=== PATIENT | male | born 1965 | race Caucasian/White ===

== ENCOUNTER 2018-05-08 23:50 | Emergency (ER) | payer SELFPAY ==
[~2018-05-08] VITALS: Ht 170.2 cm; Wt 6.8 kg
[2018-05-09] MEDS ORDERED: FLUORESCEIN (FLUOR-I-STRIPS) 1 MG STRP OU ONE (01:45)
[2018-05-09] MEDS ORDERED: BSS 15 ML IR ONE (01:45)
[2018-05-09] MEDS ORDERED: TETRACAINE 0.5% OPHTH SOLN 4 ML BTL (SINGLE DOSE ONLY) OU ONE (01:45)
[2018-05-09 04:08] VITALS: BP 177/99
--- NOTE | 2018-05-09 04:08 | ED EENT ---
History of Present Illness General Chief Complaint: Eye Problems Stated Complaint: LEFT EYE Nursing Triage Note: Pt has blood in L eye since 05/04 getting worse each day. Pt reports blurred vision in L eye. pt also reports headache. Source: patient Exam Limitations: no limitations History of Present Illness Date Seen by Provider: May 09, 2018 Time Seen by Provider: 01:31 Initial Comments This 52-year-old gentleman presents to the emergency room with complaints of left eye pain and erythema of the sclera. He recalls no specific injury. He first noticed some redness and discomfort on Wednesday of last week, 5 days ago. Symptoms have worsened and erythema hasn't expanded since then. Patient denies any use of blood thinning medications. He previously was treated for hypertension but has not been on medications for a while since he lost his insurance. He reports his vision is a little blurry in the left eye. Tonight he has had a pounding left-sided headache. He tried putting some stye medication a friend gave him in the left eye but it did not help. Visual acuity is 20/40 in both eyes, 20/70 in the left eye, and 20/30 in the right eye. He previously has had his eye care at [facility] and [facility] in [place]. He denies any trauma to his eye. He did admit that he slept with contacts in the night before symptoms started. Allergies and Home Medications Allergies Coded Allergies: No Known Drug Allergies (Unverified , 05/09/18) Patient Home Medication List Home Medication List Reviewed: Yes Review of Systems Review of Systems Constitutional: no symptoms reported Eyes: See HPI Ears: No Symptoms Reported Nose: no symptoms reported Mouth: no symptoms reported Throat: no symptoms reported Respiratory: no symptoms reported Cardiovascular: see HPI Gastrointestinal: no symptoms reported Musculoskeletal: no symptoms reported Skin: no symptoms reported Neurological: See HPI Hematologic/Lymphatic: No Symptoms Reported Immunological/Allergic: no symptoms reported Past Gwpopyi-Yaerya-Dwbhus Hx Patient Social History Recent Foreign Travel: No Contact w/Someone Who Travel: No Recent Infectious Disease Expo: No Seasonal Allergies Seasonal Allergies: No Past Medical History Surgeries: No Respiratory: No Cardiac: Yes Hypertension Neurological: No Genitourinary: No Gastrointestinal: No Musculoskeletal: No Endocrine: No HEENT: No Cancer: No Psychosocial: No Physical Exam Vital Signs Vital Signs - First Documented 05/09/18 00:38 Temp 98.0 Pulse 76 Resp 18 B/P (MAP) 177/99 (125) Pulse Ox 98 O2 Delivery Room Air Height, Weight, BMI Height: 5'7.00" Weight: 15lbs. oz. 6.768522gq; BMI Method:Stated General Appearance: WD/WN, no apparent distress Eyes: right eye normal inspection; bilateral eye PERRL, bilateral eye EOMI, bilateral eye other (Fairly diffuse erythema of the sclera on the left suggesting sub-conjunctival hemorrhage. Conjunctiva around the lids is normal. Limited funduscopic exam is unremarkable. Patient is mildly sensitive to light.) Ears: bilateral ear auricle normal, bilateral ear canal normal Nose: normal inspection Mouth/Throat: normal mouth inspection Neck: normal inspection Cardiovascular: regular rate, rhythm, no edema, no murmur Respiratory: lungs clear, normal breath sounds, no respiratory distress, no accessory muscle use Neurologic/Psychiatric: government minister II-XII nml as tested, no motor/sensory deficits, alert, normal mood/affect, oriented x 3 Skin: normal color, warm/dry Procedures/Interventions Eye : Location: left eye Anesthesia (gtts): Tetracaine Intraocular Pressure: Per Tonopen (18) Progress/Procedure Conclusion Fluorescein exam was unremarkable. Pressure with Germán-Pen was 18. Progress/Results/Core Measures Results/Orders My Orders Orders - ANDREW NARANJO MD Tetracaine 0.5% Ophth Dhara Sdv (Tetracai (05/09/18 01:45) Fluorescein Strips ([id number]) (05/09/18 01:45) Balanced Salt Irrigation Soln (Bss Irrig (05/09/18 01:45) Medications Given in ED Current Medications Medications Dose Ordered Sig/Aisha Route Start Time Stop Time Status Last Admin Dose Admin Balanced Salt Solution 15 ml ONCE ONCE IR 05/09/18 01:45 05/09/18 01:46 DC 05/09/18 02:30 15 ML Fluorescein Sodium 1 mg ONCE ONCE OU 05/09/18 01:45 05/09/18 01:46 DC 05/09/18 02:30 1 MG Tetracaine HCl 4 ml ONCE ONCE OU 05/09/18 01:45 05/09/18 01:46 DC 05/09/18 02:30 4 ML Vital Signs/I&O 05/09/18 04:08 Temp 98.0 Pulse 76 Resp 18 B/P (MAP) 177/99 (125) Pulse Ox 98 Blood Pressure Mean: 125 Progress Progress Note : Progress Note On exam was performed after anesthesia with topical tetracaine. Fluorescein exam was unremarkable. Pressure with Germán-Pen was 18. Patient had relief of headache and pain after tetracaine. Blood pressure then improved as well. Patient did not want to wait any longer for consultation with an supervisor shed workers. A plan was devised to call an supervisor shed workers later in the morning and get back with him. I did discuss the case with Dr. Garcia later in the morning. He suggested there could be irritation due to irregularity of the eye surface from a subconjunctival hemorrhage versus scleritis. He advised the patient to be seen today if symptoms do not resolve with artificial tears. I did contact the patient and communicated the recommendations. Patient expressed understanding. Departure Impression Primary Impression: Subconjunctival hemorrhage of left eye Additional Impression: Left eye pain Disposition: 01 HOME, SELF-CARE Condition: Improved Departure-Patient Inst. Decision time for Depature: 04:07 Patient Instructions: Subconjunctival Hemorrhage Add. Discharge Instructions: If you do not receive a call from the ER later this morning, please contact your eye doctor soon as possible. Return to care either in the ER or with your eye doctor soon as possible if you' re having worsening symptoms. All discharge instructions reviewed with patient and/or family. Voiced understanding. Copy Copies To 1: TO GARCIA OD, JOSHUA T MD May 09, 2018 04:08
== END 2018-05-09 04:08 | disposition home or self-care (01) ==
LOC: EDUNIT# 23:50 → ER 23:53
DX: H11.32 Conjunctival hemorrhage, left eye (principal); I10 Essential (primary) hypertension; R51 Headache
CPT/HCPCS: 99282